=== PATIENT | male | born 1935 | race Caucasian/White ===

== ENCOUNTER 2018-06-13 19:13 | Inpatient (IN) | payer OTHER ==
--- OUTSIDE RECORDS SUMMARY | 2018-06-13 19:16 | XMS REPORT | Continuity of Care Document ---
:1935 Author Organization Interface Problems Problem Status Onset Date Classification Date Comments Source Reported Medications Medication Details Route Status Patient Ordering Order Source Instructions Provider Date Allergies, Adverse Reactions, Alerts Substance Category Reaction Severity Reaction Status Date Comments Source type Reported Immunizations Immunization Date Given Site Status Last Updated Comments Source Results Order Results Value Reference Date Interpretation Comments Source Name Range Vital Signs Vital Sign Value Date Comments Source Encounters Location Location Encounter Encounter Reason Attending ADM DC Status Source Details Type Number For Provider Date Date Visit Outpatient [id number] GUSTAVO 02/12 Active [facility] /[facility] Procedures Procedure Code Date Perfomer Comments Source
--- OUTSIDE RECORDS SUMMARY | 2018-06-13 19:16 | XMS REPORT | Clinical Summary ---
:1935 Author Organization [facility] Address [address] [place] [id number] Care Team Providers Name Role Phone Asked, No Pcp Primary Care Provider Unavailable Allergies Active Allergy Reactions Severity Noted Date Comments No Known Drug Allergies Current Medications Prescription Sig. Disp. Refills Start Date End Date Status omeprazole TAKE ONE 0 08/03/2016 Active (PriLOSEC) 40 MG CAPSULE BY capsule MOUTH EVERY DAY 1/2 HOUR BEFORE BEFORE BREAKFAST OR FIRST MEAL sertraline Take 100 mg by 3 09/11/2016 Active (ZOLOFT) 100 MG mouth once tablet daily. cetirizine Take 10 mg by Active (ZyrTEC) 10 MG mouth daily. tablet memantine Take 10 mg by Active (NAMENDA) 10 MG mouth 2 (two) tablet times a day. donepezil Take 5 mg by Active (ARICEPT) 5 MG mouth nightly. tablet aspirin (ECOTRIN) Take 81 mg by Active 81 MG enteric mouth daily. coated tablet simvastatin TK 1 T PO DAILY 90 tablet 3 11/02/2017 Active (ZOCOR) 40 MG tablet simvastatin TK 1 T PO DAILY 3 09/20/2016 07/24/2017 Discontinued (ZOCOR) 40 MG tablet simvastatin TK 1 T PO DAILY 90 tablet 0 07/24/2017 11/02/2017 Discontinued (ZOCOR) 40 MG tablet Active Problems Problem Noted Date KUSUM (stress urinary incontinence), male 03/21/2017 Nonrheumatic aortic valve stenosis 10/06/2016 Encounters Date Type Specialty Care Team Description 04/03/2018 Telephone Urology Boris Mckeon MD 11/02/2017 Orders Only Cardiology Jose Burdick MA 10/16/2017 Office Visit Cardiology Reginald Bansal MD Nonrheumatic aortic valve stenosis (Primary Dx) 09/26/2017 Orders Only Cardiology Ayesha Read MA 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, unspecified vessel or lesion type (Primary Dx) 07/25/2017 Orders Only Cardiology Jose Burdick MA 07/24/2017 Orders Only Cardiology Jose Burdick MA after 06/12/2017 Social History Tobacco Use Types Packs/Day Years Used Date Never Smoker Alcohol Use Drinks/Week oz/Week Comments No Sex Assigned at Date Recorded Not on file Last Filed Vital Signs Vital Sign Reading Time Taken Blood Pressure 139/62 10/16/2017 3:06 PM MAKE 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 Pulse 67 10/16/2017 3:06 PM [employer] 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 Temperature - - Respiratory Rate - - Oxygen Saturation - - Inhaled Oxygen Concentration - - Weight 89.8 kg (198 lb) 10/16/2017 3:06 PM 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 Height 182.9 cm (6') 10/16/2017 3:06 PM MAKE 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 Body Mass Index 26.85 10/16/2017 3:06 PM MAKE 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 Plan of Treatment Health Maintenance Due Date Last Done Comments SHINGRIX VACCINE (#1) 1983 ZOSTER VACCINE 1993 PNEUMOCOCCAL POLYSACCHARIDE VACCINE AGE 65 AND OVER 1998 PNEUMOCOCCAL-13 1998 INFLUENZA VACCINE 03/20/2018 Results Not on fileafter 06/12/2017 Insurance Payer Benefit Plan / Group Subscriber ID Type Phone Address AETNA MEDICARE AETNA MEDICARE HMO/PPO [facility] xxxxxxxx HMO Work: Agnes DUDLEY [phone] [place], [facility] [id number] Home: [phone] [facility]
[2018-06-13 20:32] LABS: Absolute Lymphocytes (CBC) 1.4 K/uL (0.7-4.9); Absolute Neutrophil 8.1 K/uL (1.8-8.0); Basophils % 0.6 % (0-1.3); Eosinophils % 3.3 % (0-4.4); Hematocrit 42.8 % (39.6-49.0); MCH 29.8 pg (27.0-35.0); MCV 89.2 fL (80-100); MPV 9.8 fL (7.6-11.3); Monocytes % 9.3 % (3.3-12.3); RBC Red Blood Cell Count 4.79 M/uL (4.33-5.43)
--- NOTE | 2018-06-13 21:21 | RAD REPORT ---
EXAM DESCRIPTION: RAD - Chest Single View - 06/13/2018 8:38 pm CLINICAL HISTORY: CHF, chest pain COMPARISON: June 2009 TECHNIQUE: AP portable chest image was obtained 2024 hours . FINDINGS: Left costophrenic angle blunting is present from minimal pleural effusion. Minimal infiltr ate or atelectasis present in the left base. Lung volumes are low accentuating heart, vasculature and lung markings. No pneumothorax. No acute bony abnormality seen. No acute aortic findings suspected. IMPRESSION: Shallow inspiration exam showing minimal infiltrate or atelectasis at the left base. The re is minimal left pleural effusion. No significant failure or volume overload.
[2018-06-13 21:33] LABS: Albumin 3.2 g/dL (3.4-5.0); Bilirubin Total 0.6 mg/dL (0.2-1.0); CKMB Creatine Kinase MB 1.3 ng/mL (0.3-3.6); Magnesium 2.3 mg/dL (1.8-2.4); Protein, Total 6.5 g/dL (6.4-8.2); Thyroid Stimulating Hormone 10.4 uIU/mL (0.360-3.740); Troponin I 0.15 ng/mL (0.0-0.045)
[2018-06-13] MEDS ORDERED: ASPIRIN EC 81 MG TAB PO ONE (22:00)
[2018-06-13] MEDS ORDERED: FUROSEMIDE 20 MG/ 2ML VIAL IV ONE (22:04)
[2018-06-13] MEDS ORDERED: ACETAMINOPHEN 500 MG TAB PO PRN (22:14)
[2018-06-13] MEDS ORDERED: METOPROLOL XL 25 MG TAB PO ONE (23:00)
[2018-06-14] MEDS: ENOXAPARIN 100 MG/ML SYR SQ SCH ×3 (00:04→20:27)
[2018-06-14] MEDS: LEVOTHYROXINE SOD 0.025 MG TAB PO SCH (05:54)
--- NOTE | 2018-06-14 07:06 | HP ---
Date of Admission: 06/13/2018 Chief Complaint: Chest pain and shortness of breath. History Of Present Illness: This is an 82-year-old pleasant male patient who lives at home, recently spent few days in the [facility] for respite care as was out of town for few days. The patient's brought him back home 2 days ago and she reported that she was not quite stern ppy with the care that he got at the detention. Reported that yesterday evening, the patient had some cold sweats while he was sitting and he was complaining of some vague chest discomfort yesterday evening around that time. He did not eat well yesterday evening at all. Today, she brought him to office. The patient is not able to provide much information or details because of his underlying dem entia problem. When I was examining the patient, I noted that he was not able to lie down in the sup ine position and he got up immediately when I had him in supine position for examination reporting th at he was not able to breathe and once he was sitting up, he was okay as far as shortness of breath i s concerned. After I examined the patient, decision was made to admit him to the hospital. Allergies: NO KNOWN ALLERGIES. Medications: Aspirin 81 mg daily, donepezil 5 mg daily, fish oil 1000 mg p.o. daily, multivitamin da lopez, Namenda 10 mg p.o. 2 times a day, omeprazole 40 mg daily, sertraline 100 mg daily, simvastatin 4 0 mg daily, Zyrtec 10 mg daily. Review of Systems: TECHNICAL TRAINING MANAGER: As mentioned above. Cardiovascular: As mentioned above. Respiratory: As mentioned above. All other systems reviewed and negative. Family History: Significant for brother had liver disease. Social History: Negative for smoking or alcohol use. Past Surgical History: Hernia repair. Past Medical History: Significant for senile dementia, neuropathy, prostate cancer, hyperlipidemia, carotid artery disease, gastroesophageal reflux disease, aortic valve stenosis. Physical Examination: Vital Signs: At office, height 72 inches, weight 209 pounds, blood pressure 133/67, pulse 88, respir atory rate 16, temperature 97.1. General: The patient awake, not oriented, not in any distress, appears weaker than usual. HEENT: Head atraumatic, normocephalic. Conjunctivae nonerythematous. Sclerae white. Mouth, no thr ush or edema noted. Ears/Nose, no mass, lesion, discharge noted. Neck: Supple. No JVD, lymph nodes, bruit, thyromegaly noted. Lungs: Bilateral rales noted in lower lung grimm. Not in any respiratory distress at rest. Heart: Presence of systolic murmur. No gallop. Regular rhythm. Abdomen: Soft, bowel sounds normal. No guarding, rigidity, tenderness, mass, hepatosplenomegaly, dis tention, or bruit noted. Extremities: Bilateral trace to grade 1 pedal edema, more on right leg than the left leg. Skin: No rash, ulcer, cellulitis. Lymphatics: No lymph node enlargement in neck, supraclavicular, infraclavicular region. Neuro: No focal neurological deficit. Chest: Unremarkable. External Genitalia: Deferred. Rectal: Deferred. Laboratory Data: Sodium 142, potassium 4, chloride 110 bicarb 22, BUN 18, creatinine 1, glucose 108. Liver function tests unremarkable. ProBNP 3824. Procalcitonin less than 0.05. Total CPK 94. Tro ponin 0.15. TSH 10.4. White count 10.9, hemoglobin 14.3, platelets 137. Chest x-ray, shallow inspi ration, showing minimal infiltrate or atelectasis at left lung base. Minimum left pleural effusion. No significant failure or volume overload pattern. Impression: 1.Congestive heart failure, acute. 2.Probable subacute myocardial infarction. 3.Aortic valve stenosis. 4.Senile dementia. 5.Hyperlipidemia, mixed. 6.Prostate cancer. 7.Peripheral neuropathy. 8.Gastroesophageal reflux disease. Plan: Admit the patient to hospital for further evaluation and management of this problem. The [facility] ent is appropriate for inpatient and is expected to spend 2 midnights in hospital. We will go ahead and give him Lasix IV per order. Aspirin will be given. We will give him Lovenox 1 mg/kg subcutaneo us injection every 12 hours per order. Start him on levothyroxine and metoprolol. We will get echoc ardiogram done tomorrow morning. Consult Cardiology. Home medications will be continued per order a nd we will give him statin therapy using atorvastatin 40 mg daily. Repeat blood work tomorrow nicolette gonzalez including cardiac enzymes and lipid profile. We will consider ordering venous Doppler and if neces li CAT scan of the chest per PE protocol tomorrow. MATTY/MODL Voice ID: [id number]
[2018-06-14 07:44] LABS: Folic Acid, (Folate) 12.6 ng/mL (3.1-17.5); Troponin I 0.12 ng/mL (0.0-0.045)
[2018-06-14] MEDS ORDERED: INFLUENZA VACCINE (for 3y+) 0.5 ML DOSE IMVAC ONE (08:00)
--- NOTE | 2018-06-14 08:54 | RAD REPORT ---
EXAM DESCRIPTION: CT - Chest For Pe Angio - 06/14/2018 8:33 am CLINICAL HISTORY: Dyspnea COMPARISON: None. TECHNIQUE: Dynamically enhanced 3 mm thick images of the chest were obtained during administration o f approximately 150mL Isovue 370 IV contrast. Coronal and oblique MIP reconstruction images were gene rated and reviewed. Exam utilizes a protocol to evaluate the pulmonary arterial tree. All CT scans are performed using dose optimization technique as appropriate and may include automated exposure control or mA/KV adjustment according to patient size. FINDINGS: No pulmonary emboli are identified. Aortic assessment is limited on a PE protocol study. No gross aortic abnormality seen. No pericardial thickening or effusion. Heart size is upper normal to minimally enlarged. Small bilateral pleural effusions are present with minimal posterior lower lobe atelectasis. Mid and lower lung field interstitial markings are prominent. There is trace amounts of airspace disease in t he right apex. No pneumothorax. No pleural based mass. No mediastinal or hilar suspicious masses. No chest wall masses or abnormal axillary lymphadenopathy. IMPRESSION: No pulmonary emboli identified. Small bilateral pleural effusions with prominent interstitial markings.No focal consolidation typical for pneumonia. Mild failure or volume overload suspected.
[2018-06-14] MEDS: METOPROLOL XL 25 MG TAB PO SCH (09:43)
[2018-06-14] MEDS: FUROSEMIDE 20 MG/ 2ML VIAL IV SCH (09:43)
[2018-06-14] MEDS: ASPIRIN EC 81 MG TAB PO SCH (09:43)
--- NOTE | 2018-06-14 09:57 | RAD REPORT ---
EXAM DESCRIPTION: US - Extrem Venous W Compress Jorge - 06/14/2018 8:59 am CLINICAL HISTORY: Leg pain and swelling COMPARISON: None. TECHNIQUE: Real-time sonographic evaluation of the bilateral lower extremity common femoral, superfi cial femoral, popliteal and posterior tibial veins was performed. FINDINGS: Normal compressibility, flow augmentation, phasic flow and spontaneous flow are identified in the left and right lower extremity common femoral, superficial femoral, popliteal and posterior t ibial veins. No intraluminal filling defects seen. IMPRESSION: No DVT in either lower extremity.
[2018-06-14] MEDS: SERTRALINE 100 MG TABLET PO SCH (11:00)
--- NOTE | 2018-06-14 13:47 | EKG ---
Test Date: 2018-06-14 Test Time: 00:26:58 Records Section Supervisor: SHONDA MEASUREMENT RESULTS: Intervals: Rate: 74 CO: 198 QRSD: 92 QT: 422 QTc: 468 [place]: P: 10 CO: 198 QRS: -50 T: 22 INTERPRETIVE STATEMENTS: Sinus rhythm with sinus arrhythmia with occasional premature ventricular complexes Left anterior fascicular block Nonspecific T wave abnormality Prolonged QT Abnormal ECG Compared to ECG 07/23/1995 08:26:00 Ventricular premature complex(es) now present Left anterior fascicular block now present T-wave abnormality now present Prolonged QT interval now present Sinus bradycardia no longer present Electronically Signed On 06-14-18 13:45:42 CDT by Sadiq Valentino
--- NOTE | 2018-06-14 13:47 | EKG ---
Test Date: 2018-06-14 Test Time: 00:13:50 Structural Manager: SHONDA MEASUREMENT RESULTS: Intervals: Rate: 86 ID: QRSD: [id number] QT: 490 QTc: 586 [place]: P: ID: QRS: [id number] T: -8 INTERPRETIVE STATEMENTS: Atrial fibrillation with premature ventricular or aberrantly conducted complexes Left axis deviation Nonspecific T wave abnormality, probably digitalis effect Prolonged QT Abnormal ECG Compared to ECG 07/23/1995 08:26:00 Ventricular premature complex(es) now present Left-axis deviation now present T-wave abnormality now present Prolonged QT interval now present Sinus bradycardia no longer present Electronically Signed On 06-14-18 13:45:43 CDT by Sadiq Valentino
--- NOTE | 2018-06-14 13:59 | ECHO ---
HEIGHT: 6 ft 1 in WEIGHT: 209 lb 0 oz DATE OF STUDY: 06/14/[address]: Jose G Hernandez MD 2-DIMENSIONAL: YES M.MODE: YES DOPPLER: YES COLOR FLOW: YES TDS: NO PORTABLE: NO DEFINITY: NO BUBBLE STUDY: NO DIAGNOSIS: CONGESTIVE HEART FAILURE CARDIAC HISTORY: CATHERIZATION: NO SURGERY: NO PROSTHETIC VALVE: NO PACEMAKER: NO MEASUREMENTS (cm) DIASTOLIC (NORMALS) SYSTOLIC (NORMALS) IVSd 1.2 (0.6-1.2) LA Diam 3.5 (1.9-4.0) LVEF 59% LVIDd 5.1 (3.5-5.7) LVIDs 3.5 (2.0-3.5) %FS 31% LVPWd 1.3 (0.6-1.2) Ao Diam 2.8 (2.0-3.7) 2 DIMENSIONAL ASSESSMENT: RIGHT ATRIUM: NORMAL LEFT ATRIUM: NORMAL RIGHT VENTRICLE: NORMAL LEFT VENTRICLE: LEFT VENTRICULAR HYPERTROPHY TRICUSPID VALVE: NORMAL MITRAL VALVE: MITRAL ANNULAR CALCIFICATION PULMONIC VALVE: NORMAL AORTIC VALVE: STENOTIC PERICARDIAL EFFUSION: NONE AORTIC ROOT: NORMAL LEFT VENTRICULAR WALL MOTION: DECREASED LEFT VENTRICULAR COMPLIANCE. DOPPLER/COLOR FLOW: SEVERE AORTIC STENOSIS .7 CENTIMETERS SQUARED. GRADIENT 54mmHg. COMMENTS: LEFT VENTRICULAR HYPERTROPHY. DECREASED LEFT VENTRICULAR COMPLIANCE. NORMAL EJECTION FRACTION. MITRAL ANNULAR CALCIFICATION. SEVERE AORTIC STENOSIS - .7 CENTIMETERS SQUARED. TECHNOLOGIST: MAUREEN MARIN
--- NOTE | 2018-06-14 18:29 | PN ---
Date of Progress Note: 06/14/2018 Subjective: The patient was seen this morning for followup. He was lying in bed, not in any distres s. His was present with him at bedside. Overnight, the patient did not have any problem after he was admitted to the hospital. Objective: Vital signs: Reviewed. Intake and output records reviewed. HEENT: Unremarkable. Lungs: Clear to auscultation except minimum basal rales present, but better today than yesterday. N ot in any respiratory distress. Heart: Sounds normal. Abdomen: Soft. Bowel sounds normal. No guarding, rigidity, tenderness, or distention. Extremities: Leg edema present, but better than yesterday. Laboratory Data: His vitamin D level is 13.3, low. Last troponin 0.12. His triglyceride 103, total cholesterol 163, LDL 113, HDL 29. Vitamin B12 of 268, folate level 12.6. Venous Doppler of lower e xtremity was negative for DVT, and his CT scan of the chest showed some mild pleural effusion with so me changes of congestive heart failure in the lower lobes. No infiltrate. No consolidation. No pul monary embolism. Impression: 1.Congestive heart failure. 2.Subacute myocardial infarction. 3.Senile dementia. 4.Prostate cancer. Plan: We will continue current medications including IV Lasix and metoprolol. The patient had parox ysmal atrial fibrillation last night and we will continue to monitor him on telemetry. Continue meto prolol and Lovenox per order. Echocardiogram will be done today. We will follow up on that results. Details were discussed with buffing wheel raker, Dr. Valentino, who has evaluated and he will consider elect rosalva outpatient stress test on him. Decision for chronic anticoagulation will be made on basis of echocardiogram finding. Discussed with this morning. MATTY/MODL Voice ID: [id number] Report ID: [id number]
[2018-06-14] MEDS: ATORVASTATIN 40 MG TAB PO SCH (20:27)
[2018-06-14] MEDS: DONEPEZIL 5 MG TABLET PO SCH (20:28)
[2018-06-14] MEDS: MEMANTINE 10 MG TABLET PO SCH (20:29)
[2018-06-15] MEDS: OMEPRAZOLE DR 40 MG CAPSULE PO SCH (05:46)
[2018-06-15] MEDS: LEVOTHYROXINE SOD 0.025 MG TAB PO SCH (05:46)
[2018-06-15] MEDS: ENOXAPARIN 100 MG/ML SYR SQ SCH ×2 (11:20→20:37)
[2018-06-15] MEDS: METOPROLOL XL 25 MG TAB PO SCH (11:20)
[2018-06-15] MEDS: FUROSEMIDE 20 MG/ 2ML VIAL IV SCH (11:20)
[2018-06-15] MEDS: ASPIRIN EC 81 MG TAB PO SCH (11:20)
[2018-06-15] MEDS: MEMANTINE 10 MG TABLET PO SCH ×2 (11:21→20:37)
[2018-06-15] MEDS: SERTRALINE 100 MG TABLET PO SCH (11:22)
[2018-06-15] MEDS ORDERED: INFLUENZA VACCINE (for 3y+) 0.5 ML DOSE IMVAC ONE (12:00)
[2018-06-15 12:01] LABS: Absolute Lymphocytes (CBC) 1.3 K/uL (0.7-4.9); Absolute Monocytes 1.5 K/uL (0.1-1.3); Absolute Neutrophil 9.2 K/uL (1.8-8.0); Basophils % 2.5 % (0-1.3); Eosinophils % 2.2 % (0-4.4); Lymphocytes % 10.2 % (15.3-44.8); MCH 29.8 pg (27.0-35.0); MCV 87.5 fL (80-100); MPV 10.1 fL (7.6-11.3); Monocytes % 11.6 % (3.3-12.3); RBC Red Blood Cell Count 4.68 M/uL (4.33-5.43)
[2018-06-15 12:03] LABS: Protime INR 1.17
[2018-06-15 12:07] LABS: Magnesium 2.3 mg/dL (1.8-2.4); Potassium 3.8 mmol/L (3.5-5.1)
[2018-06-15 12:18] LABS: Urine Appearance CLEAR; Urine Bilirubin NEGATIVE (NEG); Urine Blood TRACE (NEG); Urine Color YELLOW; Urine Glucose NEGATIVE (NEG); Urine Protein NEGATIVE (NEG); Urine Urobilinogen 0.2 mg/dL (0.2-1.0); Urine pH 6.5 (5.0-7.0)
[2018-06-15 12:26] LABS: Blood Morphology Comment NOT SEEN (NOT SEEN); Platelet Estimate ADEQ; Urine White Blood Cell Casts OK
[2018-06-15 13:10] LABS: Urine Bacteria >50 /HPF (NONE SEEN); Urine Culture Reflex Order REFLEXED; Urine RBC <5 /HPF (NONE SEEN)
[2018-06-15] MEDS ORDERED: POTASSIUM 25 MEQ EFFERV TAB PO ONE (13:29)
--- NOTE | 2018-06-15 15:06 | PN ---
Date of Progress Note: 06/15/2018 Subjective: The patient was seen this morning for followup, lying in bed, not in distress. His son and , they were present in the room with him. The patient's has been with him since he is i n the hospital and she reported that he did not have any shortness of breath last night and he was ly ing down flat in supine position. No other complaints reported. The patient has not ambulated since he has been in the hospital and he was having significant weakness and instability with his gait bef ore he was admitted, so concerned about even further decline, since he has been in hospital for last 2 days without ambulation. Objective: HEENT: Unremarkable. Lungs: Clear to auscultation. Heart: Sounds normal. Presence of systolic murmur. Abdomen: Soft. Bowel sounds normal. No guarding, rigidity, tenderness, or distention. Extremities: Trace leg edema present. Laboratory Data: Echocardiogram finding from yesterday reviewed. His echo shows normal ejection fra ction, but aortic valve area 0.7 cm2. CBC, chemistry, PT, PTT pending. Impression: 1.Subacute myocardial infarction. 2.Severe aortic stenosis. 3.Senile dementia. 4.Debility. 5.Generalized weakness. Plan: We will go ahead and have physical therapy help to ambulate the patient per order. I did have a long discussion with the patient's as well as patient's son in presence of patient today abou t the findings of echocardiogram and my discussion with Dr. Valentino yesterday. Dr. Valentino has recom mended cardiac cath to be done. After the cardiac cath and depending on the findings, he will decide about referral to specialist in [place] for evaluation of this aortic valve stenosis to see if he wo uld qualify for a TAVR procedure. All these details were discussed with family today. Family is in agreement to undergo cardiac cath which will be done on Sunday. I have communicated all this informa tion with Dr. Valentino. We will continue Lovenox until last dose tomorrow morning. After that we viki woo discontinue Lovenox for cardiac cath procedure to be done on Sunday. We will continue his aspirin, metoprolol, and small dose Lasix that he gets. He had a low-grade fever last night of 99.6. We viki l go ahead and get a urinalysis with urine culture to make sure that there is no evidence of any urin tyron tract infection. MATTY/MODL Voice ID: [id number] Report ID: [id number]
[2018-06-15] MEDS: CEFTRIAXONE/SWI 1gm 1 GM/10 ML SYR IV SCH (15:17)
[2018-06-15] MEDS ORDERED: CEFTRIAXONE 1 GM/NS 50 ML 1 GM/50 ML BAG IV SCH (16:00)
[2018-06-15] MEDS: ATORVASTATIN 40 MG TAB PO SCH (20:37)
[2018-06-15] MEDS: DONEPEZIL 5 MG TABLET PO SCH (20:38)
[2018-06-15] MEDS: ENSURE HIGH PROTEIN 237 ML CAN PO SCH (20:38)
[2018-06-16] MEDS: OMEPRAZOLE DR 40 MG CAPSULE PO SCH (05:52)
[2018-06-16] MEDS: CEFTRIAXONE/SWI 1gm 1 GM/10 ML SYR IV SCH ×2 (05:54→17:55)
[2018-06-16] MEDS: LEVOTHYROXINE SOD 0.025 MG TAB PO SCH (05:58)
[2018-06-16 06:47] LABS: BUN Blood Urea Nitrogen 24 mg/dL (7-18); Bicarbonate 24 mmol/L (21-32); Glucose Level 121 mg/dL (74-106); Potassium 3.7 mmol/L (3.5-5.1); Sodium Level 139 mmol/L (136-145)
[2018-06-16] MEDS: ENSURE HIGH PROTEIN 237 ML CAN PO SCH ×2 (09:00→21:18)
[2018-06-16] MEDS ORDERED: POTASSIUM 25 MEQ EFFERV TAB PO ONE (09:00)
[2018-06-16] MEDS: METOPROLOL XL 25 MG TAB PO SCH (10:05)
[2018-06-16] MEDS: ASPIRIN EC 81 MG TAB PO SCH (10:05)
[2018-06-16] MEDS: ENOXAPARIN 100 MG/ML SYR SQ SCH (10:06)
[2018-06-16] MEDS: FUROSEMIDE 20 MG/ 2ML VIAL IV SCH (10:06)
[2018-06-16] MEDS: SERTRALINE 100 MG TABLET PO SCH (10:06)
[2018-06-16] MEDS: MEMANTINE 10 MG TABLET PO SCH ×2 (10:07→21:00)
--- NOTE | 2018-06-16 16:10 | PN ---
Date of Progress Note: 06/16/2018 Subjective: The patient was seen this morning for followup. No new complaints or problems reported by the patient's who was at bedside. The patient did ambulate in the room, going from his bed t o the bathroom with family's help yesterday, but physical therapy unfortunately did not work with him to ambulate him. I did communicate with the nurse regarding this and requested for physical therapy to help ambulate the patient per order. No shortness of breath, chest pain, nausea, vomiting. Objective: Vital Signs: Reviewed. HEENT: Unremarkable. Lungs: Clear to auscultation. Heart: Sounds normal. Abdomen: Soft. Bowel sounds normal. No guarding, rigidity, tenderness, distention. Extremities: No leg edema. Laboratory Data: Sodium 139, potassium 3.7, chloride 107, bicarb 24, BUN 24, creatinine 0.8. Glucos e 121. Hemoglobin A1c pending. Yesterday's white count was 12.5 and platelets 139. Urinalysis was abnormal consistent with urinary tract infection. Impression: 1.Severe aortic stenosis. 2.Subacute myocardial infarction. 3.Urinary tract infection. 4.Senile dementia. 5.Peripheral neuropathy. Plan: We will go ahead and continue current medications including Lasix and IV antibiotic, which was started yesterday. Ceftriaxone 1 g every 12 hours will be continued. We will continue metoprolol a nd Lovenox per order. We will discontinue Lovenox after the last dose this morning because of cardiac cath, which will be done tomorrow morning by Dr. Valentino. I will see him tomorrow for followup. MATTY/MODL Voice ID: [id number] Report ID: [id number]
[2018-06-16] MEDS: DONEPEZIL 5 MG TABLET PO SCH (21:00)
[2018-06-16] MEDS: ATORVASTATIN 40 MG TAB PO SCH (21:06)
[2018-06-16] MEDS ORDERED: MEMANTINE HCL 10 MG TABLET ONE (21:19)
[2018-06-16] MEDS ORDERED: DONEPEZIL HCL 5 MG TAB ONE (21:20)
--- NOTE | 2018-06-17 02:06 | CON ---
Date of Consultation: 06/14/[address] Hernandez's service on 06/13/2018. I saw the patient on 06/14/2018. Reason For Consultation: Congestive heart failure. History Of Present Illness: Mr. Nuñez is an 82-year-old male. He has a history of depression, evangelista ntia, dyslipidemia, came in with shortness of breath, was found to have congestive heart failure by c linical examination. Chest x-ray showed minimal pleural effusion, but no CHF. The patient is defini tely short of breath. He denied palpitation, denied any syncope. He denied any chest pain. Past Medical History: As stated above. Allergies: NONE. Review of Systems: Negative. Social History: Negative. Family History: Negative. Medications: Include aspirin, Zoloft, Zocor, Namenda, and Aricept. Physical Examination: General: He was rather somnolent, but alert and oriented to name and place. Vital signs: Stable. He was afebrile. HEENT: Negative. Neck: Supple without any lymphadenopathy, JVD, or thyromegaly. He had a right carotid bruit. Chest: Clear to auscultation and percussion. Cardiac: Revealed a regular rhythm and rate with a 3/6 systolic ejection murmur at the third right i ntercostal space radiating to the carotid. Abdomen: Benign. Extremities: Revealed 1+ edema. Diagnostic Data: Troponin was 0.15. BNP was 3824. His TSH was 10.4. Chest x-ray showed minimal pl eural effusion, no CHF. Impression And Plan: 1.Acute congestive heart failure, probably diastolic. 2.Dementia. 3.Dyslipidemia. 4.Hypothyroidism. 5.Elevated troponin. 6.Carotid bruit. 7.Possible aortic stenosis. There is an echocardiogram pending. We will see what that shows prior to making further decisions. Mr. Nuñez remains a full code. NB/MODL Voice ID: [id number] Report ID: [id number]
--- NOTE | 2018-06-17 02:20 | PN ---
Date of Progress Note: 06/15/2018 Mr. Nuñez was admitted by Dr. Hernandez on 06/13/2018. I saw him on 06/14/2018 because of congestive hea rt failure. An echocardiogram was ordered. The echocardiogram showed critical aortic stenosis with an area of 0.7 cm2, about 60 mm gradient across the aortic valve. I discussed the case with Dr. Hernandez , who discussed it with the family, they want to be aggressive with him. I will plan a heart cathete rization on 06/16/2018, left and right to define his coronary anatomy and his valve. After that, we will probably refer him to [place] for a possible TAVR. The decision will be made finally by the rosie carey in [place]. ALVIN/BRIAN Voice ID: [id number] Report ID: [id number]
--- NOTE | 2018-06-17 02:40 | PN ---
Date of Progress Note: 06/16/2018 Mr. Nuñez has critical aortic stenosis, was admitted on 06/13/2018 with CHF. Echocardiogram on 05/21 showed critical aortic stenosis of 0.7 sq cm, remains in sinus rhythm, remains with dyspnea on exertion. Cannot really move well. We will plan to keep him in the hospital as an inpatient and pe rform a heart catheterization on him on 06/17/2018, hopefully send him for a TAVR after that. ALVIN/BRIAN Voice ID: [id number] Report ID: [id number]
[2018-06-17 05:21] LABS: Magnesium 2.2 mg/dL (1.8-2.4); Potassium 3.8 mmol/L (3.5-5.1)
[2018-06-17] MEDS: OMEPRAZOLE DR 40 MG CAPSULE PO SCH (05:47)
[2018-06-17] MEDS: LEVOTHYROXINE SOD 0.025 MG TAB PO SCH (05:48)
[2018-06-17] MEDS: METOPROLOL XL 25 MG TAB PO SCH (05:48)
[2018-06-17] MEDS: CEFTRIAXONE/SWI 1gm 1 GM/10 ML SYR IV SCH ×2 (05:48→17:19)
[2018-06-17] MEDS: ASPIRIN EC 81 MG TAB PO SCH (05:48)
[2018-06-17] MEDS ORDERED: NA CHLORIDE 0.9% 500 ML ONE (06:58)
[2018-06-17] MEDS ORDERED: MIDAZOLAM HCL 2 MG/2 ML INJ ONE (06:58)
[2018-06-17] MEDS ORDERED: FENTANYL CITR 100 MCG/2 ML ONE (06:58)
[2018-06-17] MEDS ORDERED: LIDOCAINE 1% MPF 30 ML VIAL ONE (07:07)
[2018-06-17] MEDS ORDERED: NA CHLORIDE 0.9% 100 ML IV ONE (07:25)
[2018-06-17] MEDS ORDERED: KCL 20 MEQ/100 mL IVPB 20 MEQ/100 ML BAG IV SCH (09:00)
[2018-06-17] MEDS ORDERED: POTASSIUM CL SA 10 MEQ TAB PO ONE (09:45)
[2018-06-17] MEDS: ENSURE HIGH PROTEIN 237 ML CAN PO SCH (10:32)
[2018-06-17] MEDS: FUROSEMIDE 20 MG/ 2ML VIAL IV SCH (10:35)
[2018-06-17] MEDS: MEMANTINE 10 MG TABLET PO SCH (11:14)
[2018-06-17] MEDS: SERTRALINE 100 MG TABLET PO SCH (11:15)
[2018-06-17] MEDS ORDERED: NITROGLYCERIN 0.4 MG/TAB SL PRN (14:00)
[2018-06-17] MEDS ORDERED: ACETAMINOPHEN 325 MG TABLET PO PRN (14:00)
[2018-06-17] MEDS ORDERED: NA CHLORIDE 0.9% 1,000 ML IV SCH (14:00)
--- NOTE | 2018-06-17 18:17 | OP ---
Date of Procedure: 06/17/2018 Surgeon: Sadiq Valentino MD Convention Manager: Abigail Kamara. Admitted to Dr. Hernandez on 06/13/2018 with new-onset congestive heart failure, was found to have critica l aortic stenosis. History Of Present Illness: Mr. Nuñez was brought to the quality assurance/r&d lab technician this morning on 06/17/2018. He w as prepped and draped in the routine sterile fashion, given 1 mg of Versed for IV sedation. He had a left heart catheterization, right heart catheterization, selective coronary arteriogram, O2 saturati on measurements, and cardiac output. He tolerated the procedure well. He had a 6-Libyan sheath in t right common femoral artery and a 7-Libyan sheath in the right common femoral vein. [place] cat heter was introduced initially through the common femoral vein into the right atrium, right ventricle , then pulmonary artery and wedge pressures. Pressures were measured along the way. O2 saturations were done. Cardiac output was measured and it was over 5 L/minute. O2 saturations were pending at t he time of the dictation. The pressure was within normal limit. His wedge was 20. The left heart c atheterization revealed 70% mid LAD, 80% ostial RCA, right dominant, normal circumflex. There were n o complications. Blood Loss: 5 cc. Postoperative Diagnoses: Severe coronary artery disease and aortic stenosis. Plan: Plan is to refer him to CV Surgery in [place] for possible TAVR and stents versus surgery that will be decided in [place] after consultation with them. He has some comorbidities including signif icant dementia. Total conscious sedation was 45 minutes. ALVIN/BRIAN Voice ID: [id number] Report ID: [id number]
--- NOTE | 2018-06-18 04:32 | DS ---
Date of Discharge: 06/17/2018 Disposition: Discharged to go home. Physical Examination: HEENT: Unremarkable. Lungs: Clear to auscultation. Heart: Sounds normal. Abdomen: Soft. Bowel sounds normal. No guarding, rigidity, tenderness, or distention. Extremities: No leg edema. Discharge Medications And Instructions: 1.Continue all prior home medications except stop simvastatin. 2.Start new medications as below. a.Atorvastatin 40 mg p.o. daily. b.Levothyroxine 25 mcg p.o. daily. c.Vitamin D3, 2000 units 1 tablet p.o. daily. d.Metoprolol succinate 25 mg p.o. daily. 3.Follow up at my office in 3 weeks. 4.The patient to contact Dr. Valentino the day after tomorrow if he does not hear anything about his a ppointment from [place], as Dr. Valentino has already talked to the cardiovascular surgeon today after cardiac catheterization procedure was done. Hospital Course: An 82-year-old male patient admitted to the hospital after he came in to office wit h complaints of chest pain and shortness of breath. Please see dictated H and P for more information . The patient was brought in to office by his with above-mentioned problems; and after he was e valuated, he was admitted to the hospital. I was concerned about congestive heart failure and his ch est pain problem. He has underlying history of aortic stenosis. Echocardiogram done during this hos pitalization shows severe aortic stenosis, and his cardiac enzymes were abnormal with troponin elevat ed. EKG had not shown any acute ST-T changes. We were concerned about possibility of non-STEMI. He was started on aspirin, metoprolol, and Lovenox. Cardiology consultation was obtained. The patient also received IV Lasix 20 mg daily, and that did actually help with some diuresis, and his symptoms of shortness of breath improved. Physical Therapy was consulted. Details of findings of echocardiog maria esther discussed with family, and Dr. Valentino recommended cardiac catheterization. Family was agreeable , and cardiac catheterization was done today. Cardiac catheterization showed 80% stenosis of RCA and LAD and severe aortic stenosis. Dr. Valentino has suggested for the patient to be evaluated on an out patient basis by cardiovascular surgeon to evaluate for this coronary artery disease as well as aorti c valve stenosis, and he has already communicated with his cardiovascular surgeon in [place], and the y will contact the patient's with the appointment. After the procedure today, the patient was troy rice; and this evening, was agreeable to take him home. He is medically stable for dischar ge. His vitamin D level was low, and TSH was elevated during this hospitalization. The patient had low-grade fever over the weekend. Urinalysis and urine culture were done. Urinalysi s revealed presence of abnormality consistent with urinary tract infection, and he was started on cef triaxone. Final report came back today on the urine culture results and bacteria is sensitive to cef triaxone as well as Cipro and Levaquin. The patient has received IV ceftriaxone, and we will dischar ge him with oral Cipro for culture and sensitivity result. Final Diagnoses: 1.Ghr-SU-vtzeopitc myocardial infarction. 2.Congestive heart failure, acute, diastolic. 3.Aortic valve stenosis, severe. 4.Coronary artery disease. 5.Senile dementia. 6.Urinary tract infection. 7.Hyperlipidemia, mixed. 8.Prostate cancer. 9.Peripheral neuropathy. 10.Gastroesophageal reflux disease. MATTY/MODL Voice ID: [id number] Report ID: [id number]
== END 2018-06-17 21:43 | disposition home or self-care (01) | DRG 280 ==
LOC: 4TH 19:13
PROVIDERS: ADMIT Internal Medicine; ATTEND Internal Medicine
PROC: 4A023N8 Measurement of Cardiac Sampling and Pressure, Bilateral, Percutaneous Approach (ICD-10-PCS; principal; 2018-06-17)
PROC: B201YZZ Plain Radiography of Multiple Coronary Arteries using Other Contrast (ICD-10-PCS; 2018-06-17)
DX: I21.4 Non-ST elevation (NSTEMI) myocardial infarction (principal); I50.31 Acute diastolic (congestive) heart failure; N39.0 Urinary tract infection, site not specified; I25.10 Atherosclerotic heart disease of native coronary artery without angina pectoris; I35.0 Nonrheumatic aortic (valve) stenosis; F03.90 Unspecified dementia, unspecified severity, without behavioral disturbance, psychotic disturbance, mood disturbance, and anxiety; E78.2 Mixed hyperlipidemia; K21.9 Gastro-esophageal reflux disease without esophagitis; G62.9 Polyneuropathy, unspecified; Z85.46 Personal history of malignant neoplasm of prostate; Z23 Encounter for immunization
CPT/HCPCS: 36415; 71045; 71275; 80048; 80053; 80061; 81001; 82306; 82550; 82553; 82607; 82746; 83036; 83735; 83880; 84145; 84439; 84443; 84484; 85025; 85610; 85730; 87077; 87086; 87088; 87186; 93005; 93306; 93456; 93970; 97163; C1893; G0008; J0696; J1650; J1940; J2250; J3010; Q2035; Q9967

== ENCOUNTER 2018-06-21 06:47 | Emergency (ER) | payer OTHER ==
[2018-06-21] MEDS ORDERED: EPINEPHrine 1 MG/10 ML SYR IV ONE (06:48)
--- OUTSIDE RECORDS SUMMARY | 2018-06-21 06:49 | XMS REPORT | Clinical Summary ---
:1935 Author Organization [facility] Address [address] [place] [id number] Care Team Providers Name Role Phone Asked, [...] Ayesha Read MA Coronary artery disease involving marshall heart with angina pectoris, unspecified vessel or lesion type (Primary Dx) 07/25/2017 Orders Only Cardiology Jose Burdick MA 07/24/2017 Orders Only Cardiology Jose Burdick MA after 06/20/2017 Social History Tobacco Use Types Packs/Day Years Used Date Never Smoker Alcohol Use Drinks/Week oz/Week Comments No Sex Assigned at Date Recorded Not on file Last Filed Vital Signs Vital Sign Reading Time Taken Blood Pressure 139/62 10/16/2017 3:06 PM CUFF STITCHER Pulse 67 10/16/2017 3:06 PM CU[employer] STITCHER Temperature - - Respiratory Rate - - Oxygen Saturation - - Inhaled Oxygen Concentration - - Weight 89.8 kg (198 lb) 10/16/2017 3:06 PM CUFF STITCHER Height 182.9 cm (6') 10/16/2017 3:06 PM CUFF STITCHER Body Mass Index 26.85 10/16/2017 3:06 PM CUFF STITCHER Plan of Treatment Health Maintenance Due Date Last Done Comments SHINGRIX VACCINE (#1) 1983 ZOSTER VACCINE 1993 PNEUMOCOCCAL POLYSACCHARIDE VACCINE AGE 65 AND OVER 1998 PNEUMOCOCCAL-13 1998 INFLUENZA VACCINE 03/20/2018 Results Not on fileafter 06/20/2017 Insurance Payer Benefit Plan / Group Subscriber ID Type Phone Address AETNA MEDICARE AETNA MEDICARE HMO/PPO [facility] xxxxxxxx HMO Work: Agnes DUDLEY [phone] [place], [facility] [address] Home: [phone]
--- OUTSIDE RECORDS SUMMARY | 2018-06-21 06:49 | XMS REPORT | Continuity of Care Document ---
[...] Number For Provider Date Date Visit Outpatient [id number] GUSTAVO 02/12 Active [facility] /[facility] Chace Procedures Procedure Code Date Perfomer Comments Source
--- NOTE | 2018-06-21 07:59 | ER ---
Nurse's Notes [facility] Name: John Nuñez Age: 82 yrs Sex: Male : 1935 Arrival Date: 06/21/2018 Time: 06:48 Bed 3 Private MD: Diagnosis: Cardiac arrest Presentation: 06/21 07:00 Presenting complaint: EMS states: stated pt wasn't feeling good at 0540, EMS tl2 arrived at 0600 and pt was in asystole. CPR started, Pt received 5 rounds of epi and 80 of bicarb. Achieved ROSC at 0618 and lost pulse again at 0630. Pt CPR in progress on arrival, intubated, unresponsive. Care prior to arrival: Oral intubation, CPR via thumper performed by EMS and is still in progress Medication(s) given: 5 rounds of epi, 80 of bicarb IV initiated. IO right tibia. Compressions began at 06:00. 07:00 Method Of Arrival: EMS: [facility] tl2 07:00 Acuity: FRANCISCO JAVIER 1 tl2 07:07 Transition of care: patient was not received from another setting of care. Onset of tl2 symptoms was June 21, 2018 at 05:40. Risk Assessment: Do you want to hurt yourself or someone else? Patient reports no desire to harm self or others. 07:08 Initial Sepsis Screen: Does the patient meet any 2 criteria? No. Patient's initial tl2 sepsis screen is negative. Does the patient have a suspected source of infection? No. Patient's initial sepsis screen is negative. Triage Assessment: 06:44 Pain: Unable to use pain scale. Patient is unresponsive. tl2 07:07 General: see triage CPR assessment. tl2 07:07 General: Appears. tl2 07:07 General: Behavior is unresponsive. tl2 Historical: - Allergies: 07:25 No Known Allergies; ph - Home Meds: 07:25 atorvastatin 40 mg oral tab 1 tab once daily [Active]; levothyroxine 25 mcg tab 1 tab ph once daily [Active]; metoprolol succinate 25 mg oral Tb24 1 tab once daily [Active]; aspirin 81 mg Oral chew 1 tab once daily [Active]; cetirizine 10 mg oral tab 1 tab once daily [Active]; donepezil 5 mg oral TbDL 1 tab once daily [Active]; memantine 10 mg oral tab 1 tab 2 times per day [Active]; omeprazole 40 mg Oral cpDR 1 cap once daily [Active]; sertraline 100 mg oral tab 1 tab once daily [Active]; - PMHx: 07:25 CHF; Hypertension; Hyperlipidemia; Hypothyroidism; Dementia; Depression; ph - Immunization history:: Adult Immunizations unknown. - Ebola Screening: : No symptoms or risks identified at this time. - Social history:: Smoking status: unknown. Screenin:44 Abuse screen: Denies threats or abuse. Nutritional screening: No deficits noted. tl2 Tuberculosis screening: No symptoms or risk factors identified. Fall risk At risk due to immobility. 07:08 Fall Risk IV access (20 points). tl2 Assessment: 06:44 CPR assessment: unresponsive, no respiratory effort, intubated, pale. Cardiac rhythm is tl2 asystole. General:. Neuro: Level of Consciousness is unresponsive. Cardiovascular: Rhythm is asystole. Respiratory: Airway via oral intubation. Derm: Skin is pale. 06:50 Reassessment: Pulse check, no pulse. US revealed no cardiac activity, patient in PEA tl2 into asystole. 07:20 Reassessment: Judge Patel at bedside. ph 07:40 Reassessment: Family at bedside. ph 07:52 Reassessment: [facility] notified, spoke w/ coordinator Andreina Baird, case # ph [id number]. 09:25 Reassessment: Undertaker at bedside, pt released to [facility]. ph Vital Signs: 06:44 BP 135 / 18; Pulse 0; Resp 0; Temp 99.3(R); Pulse Ox 80% on ETT ambu; Weight 81.65 kg; tl2 Height 6 ft. 2 in. (187.96 cm); 06:44 Body Mass Index 23.11 (81.65 kg, 187.96 cm) tl2 Dorian Coma Score: 06:44 Eye Response: none(1). Verbal Response: none(1). Motor Response: none(1). Total: 3. tl2 ED Course: 06:44 Patient has correct armband on for positive identification. Bed in low position. tl2 Intubation: placed orally. Ventilated with Ambu bag. Maintain EMS IV. Dressing intact. Good blood return noted. Site clean \T\ dry. Gauge \T\ site: IO right tibia. 06:48 Patient arrived in ED. ds1 06:55 Martell Buck MD is Attending Physician. ps1 07:02 Triage completed. tl2 07:08 Arm band placed on right wrist. tl2 07:56 Inez Jerome RN is Primary Nurse. ph 07:58 Martell Buck MD is Pronouncing Provider. hb Administered Medications: 06:47 Drug: EPINEPHrine 0.1mg/mL 1:10,000 1 mg Route: IVP; Site: Other; tl2 Point of Care Testing: Blood Glucose: 06:44 Blood Glucose: 151 mg/dL; tl2 Ranges: Outcome: 06:51 Outcome Patient tl2 06:51 Patient : Time of 06:51 Pronounced by Martell Buck MD 06:51 Condition: 07:59 Patient left the ED. hb 09:32 Patient left the ED. ph Signatures: Arti Wu ds1 Inez Jerome RN RN ph Samaria Tegaue RN RN Keara Oneal RN RN tl2 Martell Buck MD MD ps1 Corrections: (The following items were deleted from the chart) 07:10 06:44 BP 135 / 18; Pulse 0bpm; Resp 0bpm; Pulse Ox 80% ET / Ambu; 81.65 kg; Height 6 tl2 ft. 2 in.; BMI: 23.1; tl2 07:12 07:00 CPR assessment: unresponsive, no respiratory effort, intubated, pale, tl2 tl2 07:12 07:00 Cardiac rhythm is asystole tl2 tl2 07:12 07:00 General: tl2 tl2 07:12 07:00 Neuro: Level of Consciousness is unresponsive, tl2 tl2 07:12 07:00 Cardiovascular: Rhythm is asystole tl2 tl2 07:12 07:00 Respiratory: Airway via oral intubation tl2 tl2 07:12 07:00 Derm: Skin is pale, tl2 tl2
--- NOTE | 2018-06-21 07:59 | EDPHYS ---
Physician Documentation [facility] Name: John Nuñez Age: 82 yrs Sex: Male : 1935 Arrival Date: 06/21/2018 Time: 06:48 Bed 3 Private MD: ED Physician Martell Buck HPI: 06/21 06:55 This 82 yrs old Male presents to ER via Unassigned with complaints of CPR. ps1 06:55 EMS arrived 10 min after call to asystole in field. Got PEA and then ROSC after ACLS ps1 initiated, lost pulses again and total of 45 min of down time. Presented with IO in right tibia. Pulseless, henry machine performing CPR. ET tube in place with blood in tube. . Historical: - Allergies: 07:25 No Known Allergies; ph - Home Meds: 07:25 atorvastatin 40 mg oral tab 1 tab once daily [Active]; levothyroxine 25 mcg tab 1 tab ph once daily [Active]; metoprolol succinate 25 mg oral Tb24 1 tab once daily [Active]; aspirin 81 mg Oral chew 1 tab once daily [Active]; cetirizine 10 mg oral tab 1 tab once daily [Active]; donepezil 5 mg oral TbDL 1 tab once daily [Active]; memantine 10 mg oral tab 1 tab 2 times per day [Active]; omeprazole 40 mg Oral cpDR 1 cap once daily [Active]; sertraline 100 mg oral tab 1 tab once daily [Active]; - PMHx: 07:25 CHF; Hypertension; Hyperlipidemia; Hypothyroidism; Dementia; Depression; ph - Immunization history:: Adult Immunizations unknown. - Ebola Screening: : No symptoms or risks identified at this time. - Social history:: Smoking status: unknown. ROS: 06:55 Unable to obtain ROS due to CPR in progress. ps1 Exam: 06:55 Constitutional: The patient appears comatose. ps1 06:55 Eyes: Pupils: are fixed and dilated. 06:55 Chest/axilla: henry machine performing CPR. 06:55 Cardiovascular: Rate: asystole. 06:55 Respiratory: intubated. No spontaneous breathing. Blood in ET tube. . 06:55 Musculoskeletal/extremity: Right I/O tibia. Vital Signs: 06:44 BP 135 / 18; Pulse 0; Resp 0; Temp 99.3(R); Pulse Ox 80% on ETT ambu; Weight 81.65 kg; tl2 Height 6 ft. 2 in. (187.96 cm); 06:44 Body Mass Index 23.11 (81.65 kg, 187.96 cm) tl2 Dorian Coma Score: 06:44 Eye Response: none(1). Verbal Response: none(1). Motor Response: none(1). Total: 3. tl2 Procedures: 06:55 CPR: See CPR flow sheet. Initial patient assessment: unresponsive, no respiratory ps1 effort, Ambu ventilation, The presenting cardiac rhythm is asystole. respirations assisted with BVM, the patient was intubated prior to arrival, Compressions: began prior to arrival. Meds given: See Meds list. Epinephrine despite ED evaluation and treatment, the patient . CPR was stopped at 06:51. MDM: 06:55 Data reviewed: vital signs, nurses notes, EMS record. ED course: ACLS followed per ps1 protocol. EPI given. Given prolonged downtime and no organized rhythm, POCUS performed at bedside and demonstrated no perfusing cardiac activity. Zero wall motion. TOD at 0651. 07:02 Medical screening is not applicable. ps1 Administered Medications: 06:47 Drug: EPINEPHrine 0.1mg/mL 1:10,000 1 mg Route: IVP; Site: Other; tl2 Point of Care Testing: Blood Glucose: 06:44 Blood Glucose: 151 mg/dL; tl2 Ranges: Critical Glucose Levels:Adult <50 mg/dl or >400 mg/dl <40 mg/dl or >180 mg/dl Disposition: 07:01 . ps1 Disposition: Patient pronounced on 06/21/18 06:51 by Martell Buck. Impression: Cardiac arrest. Signatures: Inez Jerome RN RN ph Samaria Teague RN RN Keara Oneal RN RN tl2 Martell Buck MD MD ps1 Corrections: (The following items were deleted from the chart) 09:32 07:59 06/21/2018 07:59 Patient pronounced on 06/21/2018 at 06:51 by Martell Buck. ph Impression: Cardiac arrest. hb
== END 2018-06-21 09:32 ==
LOC: ER 06:47
DX: I46.9 Cardiac arrest, cause unspecified (principal); I10 Essential (primary) hypertension; I50.9 Heart failure, unspecified; F32.9 Major depressive disorder, single episode, unspecified; F03.90 Unspecified dementia, unspecified severity, without behavioral disturbance, psychotic disturbance, mood disturbance, and anxiety; Z79.82 Long term (current) use of aspirin
CPT/HCPCS: 31500; 92950; 96374; 99285; J0171